=== PATIENT | male | born 1950 | race Caucasian/White ===

== ENCOUNTER → 2025-02-26 13:51 | Outpatient (CLI) | payer OTHER, SELFPAY ==
--- NOTE | 2025-02-26 13:53 | DI.CT.S_ITS ---
PROCEDURE: CT CHEST WO CON INDICATIONS: Hx of DIMAS cavitary lesion, follow up image TECHNIQUE: Noncontrast 5 mm thick sections acquired from the pulmonary apices to the posterior costophrenic angles. 1 mm lung window, 5 mm thick coronal and sagittal and 7 mm axial MIP reformats were then acquired. For radiation dose reduction, the following was used: automated exposure control, adjustment of mA and/or kV according to patient size. COMPARISON: [facility], CT, CT CHEST WITHOUT CONTRAST, 08/14/2022, 11:07. FINDINGS: Image quality: Diagnostic. Lower Neck: No enlarged lymph nodes. Thyroid: No thyroid nodules which require sonographic follow up, per consensus guidelines. Axillae: No enlarged lymph nodes. Chest Wall: Unremarkable. Bones: Unremarkable. Lungs and Pleura: No pneumothorax or pleural effusions. Significant decrease in the medial left upper lobe cavitary a consolidation. Residual bandlike opacity extends to the fissure and anterior superior left visceral pleura. No concerning residual soft tissue component is seen. Mild bronchial wall thickening. Calcified right upper lobe granuloma. No concerning lung mass or nodule. Heart: Heart size is normal. No pericardial effusion. Thoracic Vessels: The aorta and pulmonary arteries demonstrate normal size. Calcifications are noted in the thoracic arch. Mediastinum and Anupama: No enlarged lymph nodes. Esophagus: No wall thickening. Small hiatal hernia. Upper Abdomen: Visualized upper abdomen solid organs and bowel loops appear normal. IMPRESSION: Previously noted cavitary left upper lung lesion has resolved residual bandlike opacity likely representing scarring noted in the left upper lobe. No residual concerning lung mass or nodule. Emphysema. No adenopathy or pericardial effusion or cardiomegaly. Dictated by: Ellie Garcia M.D. on 03/01/2025 at 16:07 Approved by: Ellie Garcia M.D. on 03/01/2025 at 16:14
== END ==
PROVIDERS: PCP Student in an Organized Health Care Education/Training Program; Referring Provider Student in an Organized Health Care Education/Training Program; Visit Provider Student in an Organized Health Care Education/Training Program
DX: J98.4 Other disorders of lung (principal); R06.00 Dyspnea, unspecified; K44.9 Diaphragmatic hernia without obstruction or gangrene
CPT/HCPCS: 71250

== ENCOUNTER → 2025-03-08 14:32 | Outpatient (CLI) | payer OTHER, SELFPAY | LOC: RESP 14:33 | PROVIDERS: PCP Student in an Organized Health Care Education/Training Program; Referring Provider Student in an Organized Health Care Education/Training Program; Visit Provider Student in an Organized Health Care Education/Training Program | DX: J15.1 Pneumonia due to Pseudomonas (principal); R06.02 Shortness of breath; R09.02 Hypoxemia; Z87.01 Personal history of pneumonia (recurrent); J98.8 Other specified respiratory disorders; R94.2 Abnormal results of pulmonary function studies | CPT/HCPCS: 36415; 80061; 94060; 94726; 94729 ==

== ENCOUNTER → 2025-03-08 15:00 | Outpatient (CLI) | payer OTHER, SELFPAY ==
[2025-03-08 17:10] LABS: Cholesterol 134 mg/dL (140-199); HDL Cholesterol 107 mg/dL (40-60); Triglycerides 51 mg/dL (35-150)
== END ==
PROVIDERS: PCP Student in an Organized Health Care Education/Training Program; Referring Provider Student in an Organized Health Care Education/Training Program; Visit Provider Student in an Organized Health Care Education/Training Program
DX: E78.5 Hyperlipidemia, unspecified (principal)
CPT/HCPCS: 36415; 80061